=== PATIENT | female | born 2000 | race Caucasian/White ===

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

== ENCOUNTER 2019-03-26 14:00 | Emergency (ER) | payer SELFPAY ==
[~2019-03-26] VITALS: Ht 170.2 cm; Wt 136.4 kg
[2019-03-26] MEDS ORDERED: ZITHROMAX250 MG PO (14:56)
[2019-03-26] MEDS ORDERED: VENTOLIN HFA IN (14:56)
[2019-03-26] MEDS ORDERED: MEDDOSEPAK PO (14:56)
[2019-03-26 15:15] VITALS: BP 130/76
== END 2019-03-26 15:15 | disposition home or self-care (01) | DRG 153 ==
LOC: ED 14:00
DX: J06.9 Acute upper respiratory infection, unspecified (principal)

== ENCOUNTER 2024-06-03 10:21 | Emergency (ER) | payer SELFPAY ==
[2024-06-03] VITALS (7 sets, daily range): BP systolic 111–128; BP diastolic 64–96
[~2024-06-03] VITALS: Ht 170.2 cm; Wt 123.8 kg
[~2024-06-03 10:21] MED LIST changes: +MEDDOSEPAK PO; +VENTOLIN HFA IN; +ZITHROMAX250 MG PO
[2024-06-03] MEDS ORDERED: ONDANSETRON HCl 4 MG/2 ML SDV IV ONE (10:45)
[2024-06-03] MEDS ORDERED: SODIUM CHLORIDE 0.9% 1,000 ML IV ONE (10:45)
[2024-06-03] MEDS ORDERED: KETOROLAC TROMETHAMINE 30 MG/ML SDV IV ONE (10:45)
[2024-06-03 11:03] LABS: BASO% 0.6 % (0-3); EOS% 2.3 % (0-8); HEMOGLOBIN 14.1 g/dl (12.0-16.0); LYMPH% 21.6 % (15-41); MEAN CELL VOLUME 91.3 fL CALC (80.0-100.0); MEAN CORPUSCULAR HGB 29.9 pG CALC (26.0-32.0); MEAN CORPUSCULAR HGB CONC 32.8 g/dL CAL (32.0-36.0); MONO% 14.3 % (2-13); NEUT# 2.09 thou/uL (2.00-7.15); NEUT% 61.2 % (42-76); RED BLOOD COUNT 4.71 mill/uL (4.20-5.60)
[2024-06-03 11:13] LABS: ALBUMIN 4.3 g/dL (3.2-5.0); BILIRUBIN, TOTAL 0.4 mg/dL (0.02-1.3); CREATININE 0.8 mg/dL (0.5-1.0); TOTAL PROTEIN 7.5 g/dL (6.3-8.2)
[2024-06-03] MEDS ORDERED: ZOFRAN4 MG/TAB PO (11:39)
[2024-06-03] MEDS ORDERED: IBUPROFEN600 MG PO (11:39)
[2024-06-03] MEDS ORDERED: TAM75CAP PO (11:39)
== END 2024-06-03 11:57 | disposition home or self-care (01) | DRG 195 ==
LOC: ED 10:21
PROVIDERS: Emergency Medicine
DX: J10.1 Influenza due to other identified influenza virus with other respiratory manifestations (principal); Z20.822 Contact with and (suspected) exposure to COVID-19
CPT/HCPCS: J2405

== ENCOUNTER 2024-06-20 14:20 | Emergency (ER) | payer SELFPAY ==
[~2024-06-20] VITALS: Ht 170.2 cm; Wt 123.0 kg
[~2024-06-20 14:20] MED LIST changes: +IBUPROFEN600 MG PO; +TAM75CAP PO; +ZOFRAN4 MG/TAB PO
[2024-06-20 15:54] VITALS: BP 116/74
[2024-06-20] MEDS ORDERED: ZPAK PO (15:59)
[2024-06-20] MEDS ORDERED: ZYRTEC10 MG PO (15:59)
[2024-06-20 16:00] VITALS: BP 125/89
[2024-06-20 16:08] VITALS: BP 116/74
== END 2024-06-20 16:08 | disposition home or self-care (01) | DRG 153 ==
LOC: ED 14:20
DX: J06.9 Acute upper respiratory infection, unspecified (principal); Z20.822 Contact with and (suspected) exposure to COVID-19